=== PATIENT | female | born 1990 | race American Indian/Alaskan Native ===

== ENCOUNTER 2019-04-02 22:11 | Emergency (ER) | payer SELFPAY ==
--- NOTE | 2019-04-02 22:26 | Emergency Department Report ---
Blank Doc - Documentation Documentation: 28-year-old female that presents with epigastric abdominal pain, CP and SOB. This initial assessment/diagnostic orders/clinical plan/treatment(s) is/are subject to change based on patient's health status, clinical progression and re- assessment by fellow clinical providers in the ED. Further treatment and workup at subsequent clinical providers discretion. Patient/guardians urged not to elope from the ED as their condition may be serious if not clinically assessed and managed. Initial orders include: 1- Patient sent to [facility] for further evaluation and treatment 2- EKG 3- Labs
--- NOTE | 2019-04-02 22:58 | XRay Report ---
. ABDOMEN 3 VIEW(S) INDICATION: Chest and abdominal pain for 4 days. COMPARISON: None available. FINDINGS: Bowel gas pattern: No significant abnormality. Free air: None seen. Stones: None seen. Chest: No acute findings. Additional Findings: An IUD appears unremarkable. No additional significant findings. IMPRESSION: No acute abnormality of the chest or abdomen. Signer Name: Murphy Matthew MD Signed: 04/02/2019 10:54 PM Workstation Name: [email or web address] [email or web address]
[2019-04-02 23:20] LABS: Bilirubin,Urine NEG (Negative); Blood,Urine SM (Negative); Color,Urine Yellow (Yellow); Mucus,Urine 1+ /HPF; Protein,Urine <15 mg/dL mg/dL (Negative)
[2019-04-03 00:35] LABS: Basophils # (Auto) 0.1 K/mm3 (0.0-0.1); Basophils % (Auto) 0.5 % (0.0-1.8); Eosinophils # (Auto) 0.3 K/mm3 (0.0-0.4); Hematocrit 39.1 % (30.3-42.9); Hemoglobin 12.8 gm/dl (10.1-14.3); Lymphocytes # (Auto) 3.2 K/mm3 (1.2-5.4); Lymphocytes % (Auto) 28.4 % (13.4-35.0); Mean Corpuscular HGB Conc 33 % (30-34); Mean Corpuscular Volume 85 fl (79-97); Monocytes # (Auto) 0.6 K/mm3 (0.0-0.8); Monocytes % (Auto) 5.4 % (0.0-7.3); Platelet Count 300 K/mm3 (140-440); Red Blood Count 4.62 M/mm3 (3.65-5.03); Red Cell Distribution Width 14.1 % (13.2-15.2)
[2019-04-03] MEDS ORDERED: LIDOCAINE VISCOUS 2% 15 ML ORAL LIQD PO ONE (01:01)
[2019-04-03] MEDS ORDERED: ALUM-MAG HYDROXIDE-SIMETHICONE 200-200-20MG/5ML ORAL LIQD 30 ML PO ONE (01:01)
[2019-04-03 01:03] LABS: Alanine Aminotransferase 15 units/L (7-56); Albumin 3.6 g/dL (3.9-5); BUN/Creatinine Ratio 20; Blood Urea Nitrogen 16 mg/dL (7-17); Hemolysis Index 27
[2019-04-03] MEDS ORDERED: traMADol 50 MG TAB PO ONE (02:32)
--- NOTE | 2019-04-03 02:35 | Emergency Department Report ---
ED Abdominal Pain HPI - General Chief Complaint: Abdominal Pain Stated Complaint: SOB,CHEST PAIN, ABD PAIN Time Seen by Provider: 04/02/19 22:24 Source: patient Mode of arrival: Ambulatory Limitations: No Limitations - History of Present Illness Initial Comments: Ms Glasgow is a 28 y/o female who presents for epigastric pain, 4/10 intermittent x 4 days , pain radiated to epigstric ad throat as heart burn. there is intermittent nausea no vomiting. There has been no fever or chillsl, symtoms exacerbated by po intake , symptoms relieved by rest. MD Complaint: abdominal pain Onset/Timin -: days(s) Location: epigastric Radiation: epigastric Migration to: epigastric Severity: moderate Severity scale (0 -10): 4 Quality: aching, burning Consistency: intermittent Improves With: nothing Worsens With: eating Associated Symptoms: nausea. denies: vomiting, diarrhea, fever, chills, constipation, dysuria, melena - Related Data LMP Date: 03/27/19 Previous Rx's Medication Instructions Recorded Last Taken Type Ondansetron [Zofran] 4 mg PO Q6HR PRN #10 tablet 06/08/13 Unknown Rx Famotidine [Pepcid] 10 mg PO BID #30 tablet 04/03/19 Unknown Rx Ibuprofen [Motrin 800 MG tab] 800 mg PO Q8HR PRN #30 tablet 04/03/19 Unknown Rx Allergies Allergy/AdvReac Type Severity Reaction Status Date / Time No Known Allergies Allergy Unverified 06/08/13 16:33 ED Review of Systems ROS: Stated complaint: SOB,CHEST PAIN, ABD PAIN Other details as noted in HPI Constitutional: denies: chills, fever Eyes: denies: eye pain, eye discharge, vision change ENT: denies: ear pain, throat pain Respiratory: denies: cough, shortness of breath, wheezing Cardiovascular: chest pain (epigastric). denies: palpitations, dyspnea on exertion, edema, paroxysmal nocturnal dyspnea Endocrine: no symptoms reported Gastrointestinal: abdominal pain, nausea. denies: vomiting, diarrhea, constipation, hematemesis, melena, hematochezia Genitourinary: denies: urgency, dysuria, discharge Musculoskeletal: denies: back pain, joint swelling, arthralgia Skin: denies: rash, lesions Neurological: denies: headache, weakness, paresthesias Psychiatric: denies: anxiety, depression Hematological/Lymphatic: denies: easy bleeding, easy bruising ED Past Medical Hx - Past Medical History Previous Medical History?: No - Surgical History Past Surgical History?: No - Social History Smoking Status: Current Every Day Smoker - Medications Home Medications: Home Medications Medication Instructions Recorded Confirmed Last Taken Type Ondansetron [Zofran] 4 mg PO Q6HR PRN #10 tablet 06/08/13 Unknown Rx Famotidine [Pepcid] 10 mg PO BID #30 tablet 04/03/19 Unknown Rx Ibuprofen [Motrin 800 MG tab] 800 mg PO Q8HR PRN #30 tablet 04/03/19 Unknown Rx ED Physical Exam - General Limitations: No Limitations General appearance: alert, in no apparent distress - Head Head exam: Present: atraumatic, normocephalic - Eye Eye exam: Present: normal appearance, PERRL, EOMI Pupils: Present: normal accommodation - ENT ENT exam: Present: normal orophraynx, mucous membranes moist, TM's normal bilaterally - Neck Neck exam: Present: normal inspection, full ROM. Absent: tenderness, meningismus, lymphadenopathy, thyromegaly - Respiratory Respiratory exam: Present: normal lung sounds bilaterally. Absent: respiratory distress, wheezes, stridor, chest wall tenderness, accessory muscle use - Cardiovascular Cardiovascular Exam: Present: regular rate, normal rhythm, normal heart sounds. Absent: systolic murmur, diastolic murmur, rubs, gallop - GI/Abdominal GI/Abdominal exam: Present: soft, normal bowel sounds. Absent: distended, tenderness, guarding, rebound, rigid - Rectal Rectal exam: Present: deferred - Extremities Exam Extremities exam: Present: normal inspection - Back Exam Back exam: Present: normal inspection, full ROM. Absent: tenderness, CVA tenderness (R), CVA tenderness (L), muscle spasm, paraspinal tenderness, vertebral tenderness, rash noted - Neurological Exam Neurological exam: Present: alert, oriented X3, CN II-XII intact, normal gait, reflexes normal. Absent: motor sensory deficit - Psychiatric Psychiatric exam: Present: normal affect, normal mood - Skin Skin exam: Present: warm, dry, intact, normal color. Absent: rash ED Course Vital Signs 04/02/19 22:21 Temperature 98.4 F Pulse Rate 94 H Respiratory 18 Rate Blood Pressure 139/92 O2 Sat by Pulse 99 Oximetry ED Medical Decision Making - Lab Data Result diagrams: 04/03/19 00:05 04/03/19 00:05 Labs 04/02/19 04/03/19 04/03/19 Unknown 00:05 00:05 WBC 11.2 H RBC 4.62 Hgb 12.8 Hct 39.1 MCV 85 MCH 28 MCHC 33 RDW 14.1 Plt Count 300 Lymph % (Auto) 28.4 [place] % (Auto) 5.4 Eos % (Auto) 3.0 Baso % (Auto) 0.5 Lymph # 3.2 Hubbard # 0.6 Eos # 0.3 Baso # 0.1 Seg Neutrophils % 62.7 Seg Neutrophils # 7.0 Sodium 137 Potassium 4.1 Chloride 102.1 Carbon Dioxide 24 Anion Gap 15 BUN 16 Creatinine 0.8 Estimated GFR > 60 BUN/Creatinine Ratio 20 Glucose 90 Calcium 9.0 Total Bilirubin < 0.20 AST 19 ALT 15 Alkaline Phosphatase 77 Troponin T < 0.010 Total Protein 7.9 Albumin 3.6 L Albumin/Globulin Ratio 0.8 Lipase 18 Urine Color Yellow Urine Turbidity Clear Urine pH 5.0 Ur Specific [place] 1.026 Urine Protein <15 mg/dl Urine Glucose (UA) Neg Urine Ketones Neg Urine Blood Sm Urine Nitrite Neg Urine Bilirubin Neg Urine Urobilinogen 2.0 Ur Leukocyte Esterase Neg Urine WBC (Auto) 1.0 Urine RBC (Auto) 4.0 U Epithel Cells (Auto) 7.0 Urine Mucus 1+ - EKG Data EKG shows normal: sinus rhythm, axis, intervals, QRS complexes, ST-T waves Rate: normal - EKG Data Interpretation: normal EKG (normal ekg interp by ed attending NSR , no ST Elevated NM ) - Radiology Data Radiology results: report reviewed, image reviewed normal no infiltrates no opacities - Medical Decision Making pain is resolved, ekg NSR no st elevated NM, cxr: normal,ot is tolerated po intake after GI Cocktail. this is likel gerd plan; ibuprfen, pepcid follow up with pcp in 2-3 days Critical care attestation.: If time is entered above; I have spent that time in minutes in the direct care of this critically ill patient, excluding procedure time. ED Disposition Clinical Impression: Epigastric pain GERD (gastroesophageal reflux disease) Qualifiers: Esophagitis presence: without esophagitis Qualified Code(s): K21.9 - Gastro- esophageal reflux disease without esophagitis Disposition: - TO HOME OR SELFCARE Is pt being admited?: No Does the pt Need Aspirin: No Condition: Stable Instructions: Abdominal Pain (ED) Prescriptions: Ibuprofen [Motrin 800 MG tab] 800 mg PO Q8HR PRN #30 tablet PRN Reason: pain Famotidine [Pepcid] 10 mg PO BID #30 tablet Referrals: PRIMARY CARE, [Primary Care Provider] - 3-5 Days Forms: Work/School Release Form(ED) Time of Disposition: 02:56
[2019-04-03 04:26] VITALS: BP 127/78
== END 2019-04-03 03:30 | disposition home or self-care (01) ==
LOC: ED 22:11
DX: K21.9 Gastro-esophageal reflux disease without esophagitis (principal); F17.200 Nicotine dependence, unspecified, uncomplicated; Z79.899 Other long term (current) drug therapy
CPT/HCPCS: 36415; 74022; 80053; 81001; 83690; 84484; 85025; 93005; 93010